=== PATIENT | male | born 2000 | race Caucasian/White ===

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

== ENCOUNTER 2022-02-21 15:25 | Emergency (ER) | payer OTHER, SELFPAY ==
[2022-02-21 15:40] VITALS: BP 132/82; PULSE 103; RESP 18; TEMP 36.9; O2SAT 96; BMI 34.2
--- NOTE | 2022-02-21 15:44 | DI.RAD.S_ITS ---
PROCEDURE: XR FINGER RT MIN 2V INDICATIONS: crush injury TECHNIQUE: AP hand, 2 views of the 3rd finger(s) acquired. COMPARISON: None. FINDINGS: Bones: No fractures or dislocations. No suspicious bony lesions. Soft tissues: No suspicious soft tissue calcifications. IMPRESSION: No acute fracture. No osseous lesion. If symptoms and/or clinical suspicion for pathology persist, further assessment with repeat, or advanced imaging (e.g., CT, MRI, or bone scan) may be helpful for further assessment. Dictated by: Priya Porras M.D. on 02/21/2022 at 14:54 Approved by: Priya Porras M.D. on 02/21/2022 at 14:55
--- NOTE | 2022-02-21 16:45 | ED_ITS ---
HPI - Extremity Injury (Upper) <TOSHIA Jain - Last Filed: 02/21/22 16:52> General Chief Complaint: Extremity Injury, Upper Stated Complaint: R hand middle finger slammed in door Time Seen by Provider: 02/21/22 15:48 Source: patient Mode of arrival: Ambulatory History of Present Illness HPI narrative: This is a 21-year-old male presents emergency department complaining of right 3rd digit injury happened 3 days ago with worsening pain to his 3rd distal fingertip. He said that his finger was slammed in a car door and has had worsening pain underneath the nail. He has ecchymosis with a visible subungual hematoma underneath the 3rd digit without evidence of evacuation. Patient states he has full range of motion and mobility of his fingers, fingertip is getting more painful. Related Data Home Medications Medication Instructions Recorded Confirmed No Known Home Medications 08/18/21 08/18/21 Allergies Allergy/AdvReac Type Severity Reaction Status Date / Time Penicillins Allergy Severe Facial, Verified 11/19/21 11:52 throat swelling Review of Systems <TOSHIA Jain - Last Filed: 02/21/22 16:52> Review of Systems ROS Unobtainable: All systems reviewed & are unremarkable except as noted in HPI and below Patient History <TOSHIA Jain - Last Filed: 02/21/22 16:52> Medical History COVID-19 virus infection (08/18/21) Dysphagia Recurrent acute tonsillitis Respiratory obstruction Tonsillar hypertrophy Social History household members: family Smoking Status: Current every day smoker alcohol intake: never Smoking Status: Current every day smoker Substance Use Type: marijuana Exam <TOSHIA Jain - Last Filed: 02/21/22 16:52> Narrative Exam Narrative: Reviewed vitals signs and nursing notes. General: cooperative, comfortable, in no acute distress, well groomed MSK: moves all extremities, neurovascularly intact, no weakness, normal tone, 3 rd digit of right hand with subungual hematoma, this was evacuated with a 22 gauge needle via trephination for a moderate amount of serosanguineous and sanguinous drainage. Patient states that it feels much better, fingernail is intact on bilateral nail edges and at the base without ability to lift, patient's pain was improved after trephination, CSM intact distally Skin: brisk capillary refill, without pallor or erythema Initial Vital Signs Initial Vital Signs: Vital Signs Temperature 98.5 F 02/21/22 15:40 Pulse Rate 103 H 02/21/22 15:40 Respiratory Rate 18 02/21/22 15:40 Blood Pressure 132/82 02/21/22 15:40 Pulse Oximetry 96 02/21/22 15:40 Oxygen Delivery Method 02/21/22 15:40 <Vasiliy Sullivan DO - Last Filed: 02/21/22 17:00> Initial Vital Signs Initial Vital Signs: Vital Signs Temperature 98.5 F 02/21/22 15:40 Pulse Rate 103 H 02/21/22 15:40 Respiratory Rate 18 02/21/22 15:40 Blood Pressure 132/82 02/21/22 15:40 Pulse Oximetry 96 02/21/22 15:40 Oxygen Delivery Method 02/21/22 15:40 Procedures <TOSHIA Jain - Last Filed: 02/21/22 16:52> Nail Trephination Time out: Yes Location (finger): right and middle Sterile prep: chlorhexidine Method of drainage: needle Procedure successful: Yes Patient tolerated procedure: well Complications: other (None, patient is metal finger splint was applied after bandaid) Course <TOSHIA Jain - Last Filed: 02/21/22 16:52> Orders Ordered: ED Orders 02/21/22 15:44 XR finger RT min 2V Stat Vital Signs Vital signs: Vital Signs - 8 hr 02/21/22 15:40 Temperature 98.5 F Pulse Rate 103 H Respiratory Rate 18 Blood Pressure 132/82 Pulse Oximetry 96 Oxygen Delivery Method Room Air <Vasiliy Sullivan DO - Last Filed: 02/21/22 17:00> Orders Ordered: ED Orders 02/21/22 15:44 XR finger RT min 2V Stat Vital Signs Vital signs: Vital Signs - 8 hr 02/21/22 15:40 Temperature 98.5 F Pulse Rate 103 H Respiratory Rate 18 Blood Pressure 132/82 Pulse Oximetry 96 Oxygen Delivery Method Room Air MDM - Extremity Injury (Upper) <Bessy Cassidy, [facility] - Last Filed: 02/21/22 16:52> Imaging Data Extremity x-ray #1: Radiologist's Impression: PROCEDURE:? XR FINGER RT MIN 2V ? INDICATIONS:? crush injury ? TECHNIQUE:? AP hand, 2 views of the 3rd finger(s) acquired.? ? COMPARISON:? None. ? FINDINGS:? ? Bones:? No fractures or dislocations.? No suspicious bony lesions.? ? Soft tissues:? No suspicious soft tissue calcifications.? ? IMPRESSION:? No acute fracture. No osseous lesion. If symptoms and/or clinical suspicion for pathology persist, further assessment with repeat, or advanced imaging (e.g., CT, MRI, or bone scan) may be helpful for further assessment. ? ? Dictated by: Priya Porras M.D. on 02/21/2022 at 14:54 ? ? Approved by: Priya Porras M.D. on 02/21/2022 at 14:55 ? [facility] Narrative Medical decision making narrative: This is a 15-year-old male presents to the emergency department for right 3rd digit pain after he slammed his fingernail in the door a few days ago. Patient had a 3rd digit subungual hematoma without evidence of nail bed laceration, this was evacuated via nail trephination and a 22 gauge needle and patient tolerated well, moderate amount of serosanguineous drainage came out. X-ray does not show tuft fracture or evidence of fracture. Patient and I were talking and he turned pale, started to become less alert and then had vasovagal syncopal episode that lasted approximately 20 seconds, he came to afterwards without any injury he was seated in a chair and his airway remained open without seizure or vomiting. He became diaphoretic afterwards, was given water, came to, states that this happened another time after watching a procedure. He was given juice and states that he has not had food yet today, recommend he go use of food, he has a metal finger splint which he can use to protect his 3rd digit, recommend Band-Aid with antibiotic ointment and trimming the nail so it does not catch on anything. Patient was observed for period of time to make sure he had resolved from his syncopal episode and was discharged. Discharge Plan Departure Patient Disposition: Home Clinical Impression: Syncope, vasovagal Subungual hematoma of digit of hand Qualifiers: Encounter type: initial encounter Qualified Code(s): S60.10XA - Contusion of unspecified finger with damage to nail, initial encounter Instructions: DI for Syncope in Adults (Fainting), DI for Subungual Hematoma Activity Restrictions/Additional Instructions: *You have been diagnosed with a right 3rd digit fingernail injury with a blood pocket underneath the nail called a subungual hematoma. By putting the whole through the fingernail, this will drain the blood that was trapped underneath there however you will likely still lose the fingernail. Keep your cuticle short and trim length of the nail to prevent it from nagging on things. In co karthik your fingernail with a Band-Aid to prevent infection. Please follow-up with your primary doctor if you have worsening of this, topical antibiotic should be adequate. Use Tylenol and ibuprofen as needed for your symptoms. I am sorry for causing you to pass out, I am glad this is a little bit better though. Please get some food, I hope you feel better soon and thank you for coming in for evaluation. No evidence of fracture on your x-ray today. *What to do: *Please continue to take your regular medications as directed. [ ] New medication prescriptions sent to your pharmacy: [ ] [ ] New medication written as a paper prescription [x ] No new medications given *Please follow up with your primary care provider in 2-3 days, call for an appointment. Let them know you were seen in the Emergency Department and that we asked that you be seen for follow-up. We will electronically transmit a record of today's note if your PCP is in our system *If you do not have a primary care provider please contact [phone] to establish care with one of [facility] primary care providers. *Return to Emergency Department if you should have any new, worsening, or concerning symptoms, such as [fever greater than 101F, chills, worsening pain, persistent vomiting or other bothersome symptoms]. Prescriptions: No Action No Known Home Medications Referrals: Provider,Bonnie PHAM [Primary Care Provider] - Stand Alone Forms: Work Release Note Visit Report Forms: Patient Portal/API <Vasiliy Sullivan, DO - Last Filed: 02/21/22 17:00> Cosign ED Attending Cosignature Attestation: Dr Sullivan Co-Sign Statement: I was available for consultation during this patient's emergency department visit. This chart is signed by myself for administrative purposes only. I did not have direct contact with this patient during this visit. They were seen independently by the APC.
== END 2022-02-21 16:59 | disposition home or self-care (01) ==
PROVIDERS: Emergency Provider Nurse Practitioner Critical Care Medicine
DX: S60.10XA Contusion of unspecified finger with damage to nail, initial encounter (principal); W23.0XXA Caught, crushed, jammed, or pinched between moving objects, initial encounter
CPT/HCPCS: 11740; 73140; 99283